=== PATIENT | male | born 1945 | race Caucasian/White ===

== ENCOUNTER 2018-06-02 06:55 | Day surgery (SDC) | payer MEDICARE, BC ==
[2018-05-31 12:21] LABS: BASOPHILS % (AUTO) 0.6 % (0-1); EOSINOPHILS # (AUTO) 0.1 X10'3 (0-0.9); EOSINOPHILS % (AUTO) 1.8 % (0-6); LYMPHOCYTES # (AUTO) 1.1 X10'3 (1.1-4.8); LYMPHOCYTES % (AUTO) 14.2 % (21-51); MEAN CORPUSCULAR HEMOGLOBIN 33.3 PG (27.0-31.0); MEAN CORPUSCULAR HGB CONC 34.2 % (33.0-36.5); MEAN CORPUSCULAR VOLUME 97.4 FL (78-98); MEAN PLATELET VOLUME 11.8 FL (7.4-10.4); MONOCYTES # (AUTO) 0.9 X10'3 (0-0.9); MONOCYTES % (AUTO) 11.5 % (2-12); NEUTROPHILS # (AUTO) 5.5 X10'3 (1.8-7.7); NEUTROPHILS % (AUTO) 71.9 % (42-75); PRE OP PLATELET COUNT 200 X10'3 (140-440); RED CELL DISTRIBUTION WIDTH 14.3 % (11.5-14.5)
[2018-05-31 12:30] LABS: ALBUMIN 3.5 G/DL (3.4-5.0); ALBUMIN/GLOBULIN RATIO 1.2 (1.1-1.5); ALKALINE PHOSPHATASE 63 IU/L (46-116); BLOOD UREA NITROGEN 35 MG/DL (7-18); BUN/CREATININE RATIO 19.2 (5.4-32.0); CALCIUM 9.5 MG/DL (8.5-10.1); CHLORIDE 106 MMOL/L (99-107); CREATININE 1.82 MG/DL (0.60-1.10); PRE OP ALT 12 U/L (30-65); PRE OP ANION GAP 6 (8-16); PRE OP AST 13 U/L (10-37); PRE OP BILIRUB, TOTAL 0.9 MG/DL (0.0-1.0); PRE OP GLUCOSE 87 MG/DL (70-104); PRE OP POTASSIUM 4.5 MMOL/L (3.4-5.1); PRE OP SODIUM 140 MMOL/L (135-145); TOTAL PROTEIN 6.5 G/DL (6.4-8.2); eGFR 37 ML/MIN
[2018-05-31 12:43] LABS: CLARITY,URINE CLEAR (Clear); COLOR,URINE YELLOW (Yellow); GLUCOSE, URINE NEGATIVE (Neg); KETONES,URINE NEGATIVE (Neg); LEUKOCYTE ESTERASE ,URINE NEGATIVE (Neg); NITRITES, URINE NEGATIVE (Neg); OCCULT BLOOD,URINE NEGATIVE (Neg); PH,URINE 5.5 (4.8-8.0); PROTEIN,URINE NEGATIVE (Neg); UA COLLECTION TYPE CLN CATCH MIDSTREAM; UROBILINOGEN,URINE 0.2 E.U/dL (0.2-1.0)
[2018-05-31 13:07] LABS: GIANT PLATELET FEW; LARGE PLATELETS FEW; PLATELET ESTIMATE NORMAL; POIKILOCYTOSIS 1+
[2018-05-31 13:08] LABS: ACANTHOCYTES 2+; MICROCYTOSIS 1+; SCHISTOCYTES 2+
[2018-06-02] VITALS (19 sets, daily range): BP systolic 98–120; BP diastolic 49–80
[~2018-06-02] VITALS: Ht 165.1 cm; Wt 62.3 kg
[~2018-06-02 06:55] MED LIST: CARV-50 PO; Cefazolin 2GM/50ML dext iso,osmotic IVPB IV ONE; DOCUMENT DATE & TIME OF BETA-BLOCKER PO ONE; ENOX40SY7 SUBCUT; FURO40TA4 PO; PANT40TA4 PO; POTA10TA15 PO; SACU1TAB7 PO; WARF2.5T82 PO; ZAR2.5T PO; famotidine 20mg tablet PO ONE; ringers solution, lacted 1,000 ML IV SCH
[2018-06-02 07:41] LABS: PRE OP INR 1.3 INR; PRE OP PROTIME 13.3 SECONDS (9.0-12.0)
[2018-06-02] MEDS ORDERED: ceFAZolin 1000mg inj ONE ×2 (08:12→10:18)
[2018-06-02] MEDS ORDERED: BUPIVAcaine/PF 2.5mg/ml (0.25%) 10ml vial ONE ×2 (08:12→10:19)
[2018-06-02] MEDS ORDERED: ringers solution, lacted 1,000 ML IV SCH (08:41)
[2018-06-02] MEDS ORDERED: morphine 4 MG/ML inj SYRINge IV PRN (08:45)
[2018-06-02] MEDS ORDERED: ondansetron/PF 4mg/2ml inj IV PRN (08:45)
[2018-06-02] MEDS ORDERED: HYDROmorphone 1 mg/ml syringe IV PRN ×2 (08:45)
[2018-06-02] MEDS ORDERED: fentaNYL/PF 50MCG/1 ML 2ML syringe ONE ×2 (09:45→10:32)
[2018-06-02] MEDS ORDERED: propofol inj 20 ML IV ONE (09:47)
[2018-06-02] MEDS ORDERED: rocuronium 10mg/ml inj IV ONE (09:47)
[2018-06-02] MEDS ORDERED: LIDOcaine 2% (20mg/ml) 5ml vial ONE (09:47)
[2018-06-02] MEDS ORDERED: ePHEDrine 50MG/ML INJ. ONE (10:02)
[2018-06-02] MEDS ORDERED: dexamethasone sod phosphate 4mg/ml inj. ONE (10:04)
[2018-06-02] MEDS ORDERED: glycopyrrolate 0.2mg/ml inj ONE (10:13)
[2018-06-02] MEDS ORDERED: ondansetron/PF 4mg/2ml inj ONE (10:13)
[2018-06-02] MEDS ORDERED: neostigmine methylsulfate 1 MG/ML 10ml vial ONE (10:13)
== END 2018-06-02 14:30 | disposition home or self-care (01) ==
LOC: PAS 06:55
PROVIDERS: ATTEND Surgery
DX: K40.90 Unilateral inguinal hernia, without obstruction or gangrene, not specified as recurrent (principal); I25.10 Atherosclerotic heart disease of native coronary artery without angina pectoris; F43.21 Adjustment disorder with depressed mood; I50.40 Unspecified combined systolic (congestive) and diastolic (congestive) heart failure; E55.9 Vitamin D deficiency, unspecified; E03.9 Hypothyroidism, unspecified; G47.33 Obstructive sleep apnea (adult) (pediatric); I48.91 Unspecified atrial fibrillation; N18.4 Chronic kidney disease, stage 4 (severe); N40.0 Benign prostatic hyperplasia without lower urinary tract symptoms; M19.90 Unspecified osteoarthritis, unspecified site; J44.9 Chronic obstructive pulmonary disease, unspecified; Z86.14 Personal history of Methicillin resistant Staphylococcus aureus infection; Z95.5 Presence of coronary angioplasty implant and graft; Z90.49 Acquired absence of other specified parts of digestive tract; Z95.2 Presence of prosthetic heart valve; Z90.81 Acquired absence of spleen; Z88.5 Allergy status to narcotic agent; Z95.810 Presence of automatic (implantable) cardiac defibrillator; Z98.41 Cataract extraction status, right eye; Z98.42 Cataract extraction status, left eye; Z79.01 Long term (current) use of anticoagulants; Z79.899 Other long term (current) drug therapy; Z98.890 Other specified postprocedural states; Z82.3 Family history of stroke
CPT/HCPCS: 36415; 49650; 71046; 80053; 81003; 85025; 85610; 85730; A4315; A6258; C1781; J0690; J1100; J2001; J2405; J2704; J2710; J3010; J3490; J7120

== ENCOUNTER 2018-12-03 09:05 | Inpatient (IN) | payer MEDICARE, BC ==
[~2018-12-03] VITALS: Ht 162.6 cm; Wt 68.6 kg
[~2018-12-03 09:05] MED LIST changes: -Cefazolin 2GM/50ML dext iso,osmotic IVPB IV ONE; -DOCUMENT DATE & TIME OF BETA-BLOCKER PO ONE; -famotidine 20mg tablet PO ONE; -ringers solution, lacted 1,000 ML IV SCH
[2018-12-03] MEDS ORDERED: COU2.5T PO (11:09)
[2018-12-03] MEDS ORDERED: SYN0.088T PO (11:09)
[2018-12-03] MEDS ORDERED: LACT1CAP65 PO (11:09)
[2018-12-03] MEDS ORDERED: FURO-149 PO (11:09)
[2018-12-03] MEDS ORDERED: tamsulosin PO (11:09)
[2018-12-03] MEDS ORDERED: SACU1TAB PO (11:09)
[2018-12-03] MEDS ORDERED: imodium PO (11:09)
[2018-12-03] MEDS ORDERED: METO-292 PO (11:09)
[2018-12-03 11:45] LABS: BASOPHILS # (AUTO) 0.1 X10'3 (0-0.2); HEMOGLOBIN 11.5 g/dl (14.0-17.9); LYMPHOCYTES # (AUTO) 0.6 X10'3 (1.1-4.8); NEUTROPHILS # (AUTO) 4.6 X10'3 (1.8-7.7); WHITE BLOOD COUNT 6.5 X10'3 (4.5-11.0)
--- NOTE | 2018-12-03 11:46 | NUR ---
chief technician at bedside.
[2018-12-03 11:47] LABS: BASOPHILS % (AUTO) 1.5 % (0-1); EOSINOPHILS # (AUTO) 0.3 X10'3 (0-0.9); EOSINOPHILS % (AUTO) 5.3 % (0-6); HEMATOCRIT 33.8 % (42.0-52.0); MEAN CORPUSCULAR HEMOGLOBIN 33.5 PG (27.0-31.0); MEAN CORPUSCULAR HGB CONC 33.9 g/dL (33.0-36.5); MEAN CORPUSCULAR VOLUME 98.8 FL (78-98); MEAN PLATELET VOLUME 10.9 FL (7.4-10.4); MONOCYTES # (AUTO) 0.7 X10'3 (0-0.9); MONOCYTES % (AUTO) 11.2 % (2-12); PLATELET COUNT 210 X10'3 (140-440); RED BLOOD COUNT 3.42 X10'6 (4.70-6.10); RED CELL DISTRIBUTION WIDTH 15.2 % (11.5-14.5)
[2018-12-03 11:48] LABS: ALANINE AMINOTRANSFERASE 13 U/L (12-78); ALBUMIN 3.1 G/DL (3.4-5.0); ALBUMIN/GLOBULIN RATIO 1.1 (1.1-1.5); ALKALINE PHOSPHATASE 88 IU/L (46-116); ANION GAP 10 (8-16); ASPARTATE AMINO TRANSFERASE 20 U/L (10-37); BILIRUBIN,TOTAL 1.1 MG/DL (0.1-1.0); BLOOD UREA NITROGEN 80 MG/DL (7-18); BUN/CREATININE RATIO 33.8 (5.4-32.0); CALCIUM 9.2 MG/DL (8.5-10.1); CHLORIDE 109 MMOL/L (99-107); CREATININE 2.37 MG/DL (0.60-1.10); GLUCOSE 81 MG/DL (70-104); POTASSIUM 4.7 MMOL/L (3.5-5.1); SODIUM 142 MMOL/L (135-145); TOTAL CARBON DIOXIDE 22.8 MMOL/L (24-32); eGFR 27 ML/MIN
[2018-12-03 12:02] LABS: ACANTHOCYTES 2+; PLATELET ESTIMATE NORMAL; SCHISTOCYTES 1+
[2018-12-03] MEDS ORDERED: magnesium Cl slow-release 64mg tablet PO PRN (12:55)
[2018-12-03] MEDS ORDERED: magnesium 4gm in 100ml NS 100 ML IV PRN (12:55)
[2018-12-03] MEDS ORDERED: HYDROcodone/acetaminophen 5mg/325mg tablet PO PRN (12:55)
[2018-12-03] MEDS ORDERED: potassium Cl 20 mEq SR tablet PO PRN ×2 (12:55)
[2018-12-03] MEDS ORDERED: magnesium 2GM in 50ml NS 50 ML IV PRN (12:55)
[2018-12-03] MEDS ORDERED: potassium Cl 40MEQ/NS 500ml 500 ML IV PRN ×2 (12:55)
[2018-12-03] MEDS ORDERED: ondansetron/PF 4mg/2ml inj IV PRN (12:55)
[2018-12-03] MEDS ORDERED: acetaminophen 325mg tablet PO PRN ×2 (12:55)
[2018-12-03] MEDS ORDERED: morphine 4 MG/ML inj SYRINge IV PRN (12:55)
[2018-12-03] MEDS ORDERED: LOPE2CAP PO (13:00)
[2018-12-03] MEDS ORDERED: FLO0.4C PO (13:00)
[2018-12-03 13:42] LABS: INR 3.5 INR; PARTIAL THROMBOPLASTIN TIME 44 SECONDS (22-32); PROTHROMBIN TIME 33.3 SECONDS (9.0-12.0)
--- NOTE | 2018-12-03 14:14 | NUR ---
bp 97/63mmhg,hr 70 patient asymptomatic,paged Dr. olivares.
--- NOTE | 2018-12-03 14:16 | NUR ---
spoke to Dr. olivares,aware about patient being hypotensive,no new order at this time.
--- NOTE | 2018-12-03 14:21 | NUR ---
awaiting room assignment.
[2018-12-03] MEDS ORDERED: heparin, porcine 5000 units/ml vial SQ SCH (16:00)
--- NOTE | 2018-12-03 16:03 | NUR ---
called [facility] spoke to zakiya,nurse not avialable to receive report.ED CN aware.
--- NOTE | 2018-12-03 16:24 | NUR ---
Patient in room ED 11. I have received report from CANDIDO Oneal and had the opportunity to ask questions and assume patient care.
[2018-12-03 16:30] VITALS: BP 92/59
--- NOTE | 2018-12-03 16:45 | NUR ---
Received patient from ER. Patient is alert and oriented. Family at the bedside.
--- NOTE | 2018-12-03 18:05 | NUR ---
Problems reprioritized. Patient report given, questions answered & plan of care reviewed with CANDIDO Engel.
--- NOTE | 2018-12-03 18:21 | NUR ---
Patient in room PCU 3027. I have received report from osiris chavez and had the opportunity to ask questions and assume patient care. 2 rn skin check done and no skin issues observed. patient in no distress. bed alarm on
[2018-12-03 19:00] VITALS: BP 95/58
--- NOTE | 2018-12-03 19:07 | NUR ---
PAGER ID: [phone] MESSAGE: pcu [phone]; ilda tomas did you want to hold the heparin tonight? thanks dell olivares ordered to d/c heparin sq, to change lasix 60mg bid to 40mg bid and to ensure pt/inr is drawn in am
[2018-12-03] MEDS: carVEDilol 3.125mg tablet PO SCH (20:00)
[2018-12-03] MEDS ORDERED: furosemide 10 MG/1 ML 10ml inj IV SCH (20:00)
[2018-12-03] MEDS: furosemide 40mg/4ml inj IV SCH (20:00)
--- NOTE | 2018-12-03 20:00 | NUR ---
dr martinez notified about 7 beat run v-tach and ordered mag level
[2018-12-03 20:48] VITALS: BP 87/53
[2018-12-03] MEDS: docusate sod 100mg capsule PO SCH (20:49)
[2018-12-03] MEDS: metoclopramide 10mg tablet PO SCH (20:49)
[2018-12-03] MEDS ORDERED: tamsulosin 0.4mg capsule PO SCH (21:00)
[2018-12-03 23:00] VITALS: BP 90/52
[2018-12-04 03:00] VITALS: BP 92/72
[2018-12-04 05:14] LABS: BASOPHILS # (AUTO) 0.1 X10'3 (0-0.2); BASOPHILS % (AUTO) 1.2 % (0-1); EOSINOPHILS # (AUTO) 0.4 X10'3 (0-0.9); HEMOGLOBIN 10.6 g/dl (14.0-17.9); MEAN PLATELET VOLUME 10.3 FL (7.4-10.4); MONOCYTES # (AUTO) 0.8 X10'3 (0-0.9); NEUTROPHILS # (AUTO) 4.5 X10'3 (1.8-7.7); WHITE BLOOD COUNT 6.4 X10'3 (4.5-11.0)
[2018-12-04 05:17] LABS: EOSINOPHILS % (AUTO) 6.4 % (0-6); INR 3.7 INR; LYMPHOCYTES # (AUTO) 0.5 X10'3 (1.1-4.8); LYMPHOCYTES % (AUTO) 8.6 % (21-51); MEAN CORPUSCULAR HEMOGLOBIN 33.3 PG (27.0-31.0); MEAN CORPUSCULAR HGB CONC 34.2 g/dL (33.0-36.5); MEAN CORPUSCULAR VOLUME 97.3 FL (78-98); MONOCYTES % (AUTO) 12.9 % (2-12); NEUTROPHILS % (AUTO) 70.9 % (42-75); PLATELET COUNT 197 X10'3 (140-440); PROTHROMBIN TIME 34.8 SECONDS (9.0-12.0); RED BLOOD COUNT 3.19 X10'6 (4.70-6.10); RED CELL DISTRIBUTION WIDTH 15.1 % (11.5-14.5)
[2018-12-04 05:22] LABS: ALANINE AMINOTRANSFERASE 15 U/L (12-78); ALBUMIN 2.9 G/DL (3.4-5.0); ALBUMIN/GLOBULIN RATIO 1.1 (1.1-1.5); ALKALINE PHOSPHATASE 81 IU/L (46-116); ANION GAP 10 (8-16); ASPARTATE AMINO TRANSFERASE 14 U/L (10-37); BILIRUBIN,TOTAL 1.1 MG/DL (0.1-1.0); BLOOD UREA NITROGEN 82 MG/DL (7-18); BUN/CREATININE RATIO 35.8 (5.4-32.0); CALCIUM 9.5 MG/DL (8.5-10.1); CHLORIDE 105 MMOL/L (99-107); CREATININE 2.29 MG/DL (0.60-1.10); GLUCOSE 86 MG/DL (70-104); MAGNESIUM 2.1 MG/DL (1.5-2.4); POTASSIUM 4.4 MMOL/L (3.5-5.1); SODIUM 137 MMOL/L (135-145); TOTAL CARBON DIOXIDE 22.2 MMOL/L (24-32); TOTAL PROTEIN 5.5 G/DL (6.4-8.2); eGFR 28 ML/MIN
[2018-12-04 06:00] VITALS: BP 110/70
--- NOTE | 2018-12-04 06:10 | NUR ---
Patient in room PCU 3027. I have received report from CANDIDO Engel and had the opportunity to ask questions and assume patient care.
--- NOTE | 2018-12-04 06:32 | NUR ---
Problems reprioritized. Patient report given, questions answered & plan of care reviewed with ONCOMING DAY SHIFT NURSE. PATIENT ASLEEP IN NO DISTRESS. CPAP ON
[2018-12-04] MEDS: furosemide 40mg/4ml inj IV SCH (07:31)
[2018-12-04] MEDS: metoclopramide 10mg tablet PO SCH (07:31)
[2018-12-04] MEDS: docusate sod 100mg capsule PO SCH (07:32)
[2018-12-04] MEDS: carVEDilol 3.125mg tablet PO SCH (07:32)
[2018-12-04 07:59] LABS: PLATELET ESTIMATE NORMAL
[2018-12-04 08:00] LABS: ACANTHOCYTES 2+; ANISOCYTOSIS 1+; SCHISTOCYTES 1+
[2018-12-04] MEDS ORDERED: levoTHYROXINE 25mcg tablet PO SCH (08:00)
[2018-12-04] MEDS ORDERED: K and/or MAG REPLACEMENT MC SCH (08:00)
[2018-12-04 12:06] VITALS: BP 90/61
--- NOTE | 2018-12-04 15:40 | NUR ---
DC inst provided to pt & pt's daughter. IV DC'd, tip intact. All belongings sent w/pt. WC to front lobby.
== END 2018-12-04 15:40 | disposition home or self-care (01) | DRG 292 ==
LOC: ER 09:06 → ED HOLD 12:53 → PCU 3S 16:30
PROVIDERS: ADMIT Internal Medicine; ATTEND Hospitalist
PROC: 5A09357 Assistance with Respiratory Ventilation, Less than 24 Consecutive Hours, Continuous Positive Airway Pressure (ICD-10-PCS; principal; 2018-12-03)
PROC: 5A09357 Assistance with Respiratory Ventilation, Less than 24 Consecutive Hours, Continuous Positive Airway Pressure (ICD-10-PCS; 2018-12-04)
DX: I50.23 Acute on chronic systolic (congestive) heart failure (principal); R18.8 Other ascites; I38 Endocarditis, valve unspecified; E11.22 Type 2 diabetes mellitus with diabetic chronic kidney disease; I25.10 Atherosclerotic heart disease of native coronary artery without angina pectoris; I48.91 Unspecified atrial fibrillation; K74.60 Unspecified cirrhosis of liver; N18.3 Chronic kidney disease, stage 3 (moderate); R79.1 Abnormal coagulation profile; Z66 Do not resuscitate; Z79.01 Long term (current) use of anticoagulants; Z90.81 Acquired absence of spleen; Z95.0 Presence of cardiac pacemaker; Z95.1 Presence of aortocoronary bypass graft; Z95.3 Presence of xenogenic heart valve; Z88.8 Allergy status to other drugs, medicaments and biological substances; Z90.49 Acquired absence of other specified parts of digestive tract
CPT/HCPCS: 36415; 71045; 80053; 83735; 83880; 84145; 85025; 85610; 85730; 87070; 93005; 93306; 99285; G0378; J1940; J8597

== ENCOUNTER 2019-01-31 07:18 | Day surgery (SDC) | payer MEDICARE, BC ==
[~2019-01-31] VITALS: Ht 165.1 cm; Wt 75.0 kg
[2019-01-31] VITALS (11 sets, daily range): BP systolic 80–98; BP diastolic 50–68
[~2019-01-31 07:18] MED LIST changes: +COU2.5T PO; -ENOX40SY7 SUBCUT; +FLO0.4C PO; +FURO-149 PO; -FURO40TA4 PO; +LACT1CAP65 PO; +LIDOcaine 1% 30ml preserv. free vial SQ STA; +LOPE2CAP PO; +METO-292 PO; -PANT40TA4 PO; +SACU1TAB PO; -SACU1TAB7 PO; +SYN0.088T PO
[2019-01-31] MEDS ORDERED: normal saline 1000ml 1,000 ML IV PRN (07:45)
[2019-01-31] MEDS ORDERED: albumin 25% 100mL bottle x 1 IV PRN (07:45)
[2019-01-31] MEDS ORDERED: LEVO50TA8 PO (07:59)
[2019-01-31] MEDS ORDERED: CHOL4PAC19 PO (07:59)
[2019-01-31 08:17] LABS: INR 1.5 INR
== END 2019-01-31 10:40 | disposition home or self-care (01) ==
LOC: SSTAY O 07:18
PROVIDERS: ATTEND Radiology Vascular & Interventional Radiology
DX: R18.8 Other ascites (principal); I42.0 Dilated cardiomyopathy; I25.10 Atherosclerotic heart disease of native coronary artery without angina pectoris; I50.9 Heart failure, unspecified; K76.9 Liver disease, unspecified; Z95.2 Presence of prosthetic heart valve; Z79.899 Other long term (current) drug therapy; Z79.01 Long term (current) use of anticoagulants; Z88.8 Allergy status to other drugs, medicaments and biological substances
CPT/HCPCS: 36415; 49083; 85610; C1729; J3490; J7030

== ENCOUNTER 2019-04-14 10:19 | Inpatient (IN) | payer MEDICARE, BC ==
[~2019-04-14] VITALS: Ht 162.6 cm; Wt 66.0 kg
[~2019-04-14 10:19] MED LIST changes: -CARV-50 PO; +CARV25TA3 PO; +CHOL4PAC19 PO; +LEVO50TA8 PO; -LIDOcaine 1% 30ml preserv. free vial SQ STA; -SYN0.088T PO; -WARF2.5T82 PO; -ZAR2.5T PO
[2019-04-14 11:04] LABS: BASOPHILS # (AUTO) 0.1 X10'3 (0-0.2); EOSINOPHILS # (AUTO) 0.1 X10'3 (0-0.9); MONOCYTES # (AUTO) 0.6 X10'3 (0-0.9)
[2019-04-14 11:06] LABS: BASOPHILS % (AUTO) 1.3 % (0-1); EOSINOPHILS % (AUTO) 1.8 % (0-6); HEMATOCRIT 28.9 % (42.0-52.0); LYMPHOCYTES # (AUTO) 0.5 X10'3 (1.1-4.8); LYMPHOCYTES % (AUTO) 8.4 % (21-51); MEAN CORPUSCULAR HEMOGLOBIN 33.4 PG (27.0-31.0); MEAN CORPUSCULAR HGB CONC 34.6 g/dL (33.0-36.5); MEAN CORPUSCULAR VOLUME 96.4 FL (78-98); MEAN PLATELET VOLUME 10.5 FL (7.4-10.4); MONOCYTES % (AUTO) 9.8 % (2-12); NEUTROPHILS # (AUTO) 4.9 X10'3 (1.8-7.7); NEUTROPHILS % (AUTO) 78.7 % (42-75); PLATELET COUNT 163 X10'3 (140-440); RED CELL DISTRIBUTION WIDTH 13.8 % (11.5-14.5); WHITE BLOOD COUNT 6.2 X10'3 (4.5-11.0)
[2019-04-14 11:07] LABS: CLARITY,URINE CLEAR (Clear); COLOR,URINE YELLOW (Yellow); GLUCOSE, URINE NEGATIVE (Neg); KETONES,URINE NEGATIVE (Neg); LEUKOCYTE ESTERASE ,URINE NEGATIVE (Neg); NITRITES, URINE NEGATIVE (Neg); OCCULT BLOOD,URINE NEGATIVE (Neg); PROTEIN,URINE TRACE mg/dl (Neg); UROBILINOGEN,URINE 0.2 E.U/dL (0.2-1.0)
[2019-04-14 11:12] LABS: UA COLLECTION TYPE CLN CATCH MIDSTREAM
[2019-04-14 11:18] LABS: BACTERIA,URINE NONE SEEN /HPF (Neg); RBC,URINE 0-2 /HPF (0-2); SQUAMOUS EPITHELIAL CELL,UR FEW /LPF (FEW); WBC,URINE 0-4 /HPF (0-4)
[2019-04-14 11:18] LABS: ALANINE AMINOTRANSFERASE 14 U/L (12-78); ALBUMIN 3.2 G/DL (3.4-5.0); ALBUMIN/GLOBULIN RATIO 1.1 (1.1-1.5); ALKALINE PHOSPHATASE 91 IU/L (46-116); ANION GAP 12 (8-16); ASPARTATE AMINO TRANSFERASE 15 U/L (10-37); BILIRUBIN,TOTAL 1.3 MG/DL (0.1-1.0); BLOOD UREA NITROGEN 130 MG/DL (7-18); BUN/CREATININE RATIO 42.8 (5.4-32.0); CALCIUM 9.7 MG/DL (8.5-10.1); CHLORIDE 90 MMOL/L (99-107); CREATININE 3.04 MG/DL (0.60-1.10); GLUCOSE 98 MG/DL (70-104); LIPASE 182 U/L (73-393); SODIUM 134 MMOL/L (135-145); TOTAL CARBON DIOXIDE 32.1 MMOL/L (24-32); TOTAL PROTEIN 6.1 G/DL (6.4-8.2); eGFR 20 ML/MIN
[2019-04-14 11:19] LABS: POTASSIUM 2.5 MMOL/L (3.5-5.1)
[2019-04-14 11:26] LABS: PLATELET ESTIMATE NORMAL
[2019-04-14 11:27] LABS: ACANTHOCYTES 2+; LARGE PLATELETS FEW; SCHISTOCYTES 1+
[2019-04-14 11:29] LABS: MUCUS STRANDS FEW /LPF (Neg)
[2019-04-14 11:30] LABS: TRANSITIONAL EPI CELLS,URINE FEW /HPF
[2019-04-14] MEDS ORDERED: potassium Cl 40 mEq/NS 500ml IV ONE (12:20)
[2019-04-14] MEDS ORDERED: morphine 4 MG/ML inj SYRINge IV ONE (12:20)
[2019-04-14] MEDS: potassium CL 10mEq/100ml bag 100 ML IV SCH ×4 (13:19→16:50)
[2019-04-14] MEDS ORDERED: ondansetron/PF 4mg/2ml inj IV ONE (13:30)
[2019-04-14 13:48] LABS: TROPONIN I 0.08 NG/ML (0.0-0.05)
[2019-04-14] MEDS ORDERED: normal saline 1000ml 1,000 ML IV SCH (14:33)
[2019-04-14] MEDS ORDERED: mag hydrox/Alum hydrox/simeth 30ml oral suspension PO PRN (14:35)
[2019-04-14] MEDS ORDERED: potassium Cl 20 mEq SR tablet PO PRN ×3 (14:35→23:00)
[2019-04-14] MEDS ORDERED: ondansetron/PF 4mg/2ml inj IV PRN (14:35)
[2019-04-14] MEDS ORDERED: acetaminophen 325mg tablet PO PRN ×2 (14:35)
[2019-04-14] MEDS ORDERED: magnesium Cl slow-release 64mg tablet PO PRN (14:35)
[2019-04-14] MEDS ORDERED: potassium CL 10mEq/100ml bag 100 ML IV PRN ×3 (14:35→23:00)
[2019-04-14] MEDS ORDERED: magnesium hydroxide 30ml (MOM) UD suspension PO PRN (14:35)
[2019-04-14] MEDS ORDERED: magnesium 4gm in 100ml NS 100 ML IV PRN (14:35)
[2019-04-14] MEDS ORDERED: magnesium 2GM in 50ml NS 50 ML IV PRN ×2 (14:35→23:00)
[2019-04-14] MEDS ORDERED: HYDR-4069 PO (14:37)
[2019-04-14] MEDS ORDERED: ISOS30TA6 PO (14:38)
--- NOTE | 2019-04-14 14:41 | NUR ---
pt refusing zofran at this time.
[2019-04-14] MEDS ORDERED: METO5TAB7 PO (14:45)
[2019-04-14] MEDS ORDERED: SERT50TA10 PO (14:46)
--- NOTE | 2019-04-14 14:51 | NUR ---
pt reports freq. low BPs at home. BP 88/58, MD aware.
[2019-04-14 15:00] VITALS: BP 88/60
--- NOTE | 2019-04-14 15:52 | NUR ---
Patient arrived to [facility] 3024A at 1552. Vital signs: BP: 88/60, HR: 61, RR: 18 O2: 96% RA. Patient oriented to room and to call light. No complaints at this time. Will continue to monitor.
[2019-04-14] MEDS ORDERED: WARF2.5T PO (17:02)
--- NOTE | 2019-04-14 17:24 | NUR ---
88/60 61 18 96% RA, Patient has been admitted to 3024A from ED, reoriented to unit, call light w/in reach, all needs met at this time. will continue to monitor.
[2019-04-14 18:00] VITALS: BP 88/64
--- NOTE | 2019-04-14 18:58 | NUR ---
Orientee documentation: I have reviewed and agree with all interventions, assessments performed and documented by CANDIDO Brito. Orientee Medication Administration: For this medication-pass time frame, all medication were reviewed, dispensed, administered and documented per hospital policy by CANDIDO Brito.
--- NOTE | 2019-04-14 19:04 | NUR ---
Patient in room PCU 3024. I have received report from Tete REY and had the opportunity to ask questions and assume patient care.
[2019-04-14 19:33] LABS: CLARITY,URINE CLEAR (Clear); COLOR,URINE YELLOW (Yellow); GLUCOSE, URINE NEGATIVE (Neg); KETONES,URINE NEGATIVE (Neg); LEUKOCYTE ESTERASE ,URINE NEGATIVE (Neg); NITRITES, URINE NEGATIVE (Neg); OCCULT BLOOD,URINE NEGATIVE (Neg); PROTEIN,URINE 30 mg/dl (Neg); UROBILINOGEN,URINE 0.2 E.U/dL (0.2-1.0)
[2019-04-14 19:34] LABS: UA COLLECTION TYPE NON-SPECIFIED
[2019-04-14] MEDS ORDERED: hyDRALAzine 10mg tablet PO PRN (19:35)
[2019-04-14] MEDS ORDERED: [UNRECOGNIZED DRUG - OTHER] PO PRN (19:35)
[2019-04-14] MEDS ORDERED: lactulose 20gm/30ml cup PO PRN (19:35)
[2019-04-14] MEDS ORDERED: CHOLESTYRAMINE PO PRN (19:35)
[2019-04-14] MEDS ORDERED: chloestyramine/aspartame 4gm packet PO PRN (19:40)
[2019-04-14 19:42] LABS: BACTERIA,URINE NONE SEEN /HPF (Neg); MUCUS STRANDS NONE SEEN /LPF (Neg); RBC,URINE 0-2 /HPF (0-2); SQUAMOUS EPITHELIAL CELL,UR FEW /LPF (FEW); WBC,URINE 0-4 /HPF (0-4)
[2019-04-14 19:43] LABS: AMORPHOUS URATES 1+; HYALINE CASTS 0-3 /LPF (NEGATIVE)
[2019-04-14 20:08] LABS: UA EOSINOPHILS NO EOS /HPF
[2019-04-14] MEDS: tamsulosin 0.4mg capsule PO SCH (20:45)
[2019-04-14] MEDS: potassium CL 10mEq/100ml bag 100 ML IV PRN ×2 (20:46→23:22)
[2019-04-14 23:00] VITALS: BP 90/64
[2019-04-15] MEDS: potassium CL 10mEq/100ml bag 100 ML IV PRN ×2 (02:08→03:25)
[2019-04-15 03:00] VITALS: BP 92/66
[2019-04-15 06:00] VITALS: BP 133/81
[2019-04-15 06:05] LABS: HEMATOCRIT 28.5 % (42.0-52.0); HEMOGLOBIN 9.8 g/dl (14.0-17.9); MONOCYTES # (AUTO) 0.6 X10'3 (0-0.9)
[2019-04-15 06:08] LABS: BASOPHILS % (AUTO) 0.7 % (0-1); EOSINOPHILS # (AUTO) 0.2 X10'3 (0-0.9); EOSINOPHILS % (AUTO) 2.6 % (0-6); LYMPHOCYTES # (AUTO) 0.4 X10'3 (1.1-4.8); LYMPHOCYTES % (AUTO) 6.4 % (21-51); MEAN CORPUSCULAR HEMOGLOBIN 33.5 PG (27.0-31.0); MEAN CORPUSCULAR HGB CONC 34.5 g/dL (33.0-36.5); MEAN CORPUSCULAR VOLUME 97.1 FL (78-98); MEAN PLATELET VOLUME 11.6 FL (7.4-10.4); MONOCYTES % (AUTO) 10.5 % (2-12); NEUTROPHILS # (AUTO) 4.8 X10'3 (1.8-7.7); NEUTROPHILS % (AUTO) 79.8 % (42-75); PLATELET COUNT 157 X10'3 (140-440); RED BLOOD COUNT 2.93 X10'6 (4.70-6.10); RED CELL DISTRIBUTION WIDTH 14.4 % (11.5-14.5)
--- NOTE | 2019-04-15 06:15 | NUR ---
Patient in room PCU 3024. I have received report from CANDIDO Vásquez and had the opportunity to ask questions and assume patient care. Patient is currently sleeping in bed, CPAP in place, bed locked and low, call light in reach. No acute distress, will continue to monitor
[2019-04-15 06:30] LABS: ALBUMIN 2.8 G/DL (3.4-5.0); ANION GAP 10 (8-16); BLOOD UREA NITROGEN 127 MG/DL (7-18); BUN/CREATININE RATIO 43.8 (5.4-32.0); CALCIUM 8.2 MG/DL (8.5-10.1); CHLORIDE 93 MMOL/L (99-107); GLUCOSE 95 MG/DL (70-104); MAGNESIUM 2.1 MG/DL (1.5-2.4); POTASSIUM 3.1 MMOL/L (3.5-5.1); SODIUM 134 MMOL/L (135-145); eGFR 21 ML/MIN
--- NOTE | 2019-04-15 06:37 | NUR ---
Problems reprioritized. Patient report given, questions answered & plan of care reviewed with Ninfa REY.
[2019-04-15 06:49] LABS: ACANTHOCYTES 2+; ANISOCYTOSIS 1+; PLATELET ESTIMATE NORMAL; POLYCHROMASIA FEW
[2019-04-15 06:50] LABS: SCHISTOCYTES FEW
[2019-04-15] MEDS: sertraline 50mg tablet PO SCH (07:51)
[2019-04-15] MEDS: lactobacillus rhamnosus 10,000 MMU CELLS/CAPSULE PO SCH (07:51)
[2019-04-15] MEDS: levoTHYROXINE 25mcg tablet PO SCH (07:51)
[2019-04-15] MEDS: tamsulosin 0.4mg capsule PO SCH ×2 (07:51→20:16)
[2019-04-15] MEDS: potassium Cl 20 mEq SR tablet PO PRN ×3 (07:56→20:17)
[2019-04-15] MEDS ORDERED: non-formulary drug (Levothyroxine Sodium 1 TAB) PO SCH (08:00)
[2019-04-15] MEDS: K and/or MAG REPLACEMENT MC SCH (08:00)
[2019-04-15] MEDS ORDERED: non-formulary drug (Lactobacillus Acidophilus (Probiotic) 1 EACH) PO SCH (08:00)
--- NOTE | 2019-04-15 10:15 | NUR ---
PAGER ID: [phone] MESSAGE: CANDIDO Winters, ext [phone], [id number], LOKI Jansen nurse informed me you wanted patient on SPO2 and to put in an order, need parameters, patient's SPO2 is 95% on RA and patient does not understand reason for O2.
[2019-04-15 11:00] VITALS: BP 93/65
--- NOTE | 2019-04-15 11:21 | NUR ---
PAGER ID: [phone] MESSAGE: CANDIDO Winters, ext [phone], [id number], Justyna, requesting order for PT eval/treat, thank you.
--- NOTE | 2019-04-15 12:54 | NUR ---
PAGER ID: [phone] MESSAGE: [id number] Joe Jansen. unable to obtain Temp; rectal temp 94.2. please advise. Luis Manuel REY ext [phone]
[2019-04-15 15:00] VITALS: BP 92/66
--- NOTE | 2019-04-15 16:34 | NUR ---
PAGER ID: [phone] MESSAGE: CANDIDO Winters, ext [phone], [id number], Justyna. FYI, patient oral temp now 97.6 after 3.5 hours with penny hugger applied. Family wondering about thyroid function, can we get a TSH? Thank you. Spoke with Dr. Fernandes, she okay'd getting the TSH and said to discontinue the penny hugger at this time.
[2019-04-15 18:00] VITALS: BP 91/65
--- NOTE | 2019-04-15 18:11 | NUR ---
Problems reprioritized. Patient report given, questions answered & plan of care reviewed with Thalia. patient is currently sitting in chair in room with family at bedside, bed locked and low, call light in reach, patient stable at shift change.
--- NOTE | 2019-04-15 18:48 | NUR ---
Orientee documentation: I have reviewed and agree with interventions, assessments performed and documented by Vianey REY.
--- NOTE | 2019-04-15 18:50 | NUR ---
Patient in room PCU 3024. I have received report from Vianey REY and had the opportunity to ask questions and assume patient care.
[2019-04-15 23:00] VITALS: BP 89/60
[2019-04-16] VITALS (16 sets, daily range): BP systolic 84–116; BP diastolic 55–78
--- NOTE | 2019-04-16 05:46 | NUR ---
PAGER ID: [phone] MESSAGE: pt Long[place] Joe [id number] c/o nausea, got Zofran but not very effective. Can he has other medication? Thanks, Thalia [phone]!
[2019-04-16] MEDS ORDERED: proCHLORperazine 10 MG/2 ml inj IV PRN (06:00)
--- NOTE | 2019-04-16 06:00 | NUR ---
Patient in room PCU 3024. I have received report from Thalia REY and had the opportunity to ask questions and assume patient care.
--- NOTE | 2019-04-16 06:00 | NUR ---
Patient in room PCU 3024. I have received report from Thalia REY and had the opportunity to ask questions and assume patient care.
--- NOTE | 2019-04-16 06:02 | NUR ---
Dr. Larry saucedo called and got order of 10mg companzine IV
[2019-04-16 06:13] LABS: ALBUMIN 2.9 G/DL (3.4-5.0); ANION GAP 8 (8-16); BLOOD UREA NITROGEN 130 MG/DL (7-18); BUN/CREATININE RATIO 42.3 (5.4-32.0); CALCIUM 9.2 MG/DL (8.5-10.1); CHLORIDE 94 MMOL/L (99-107); CREATININE 3.07 MG/DL (0.60-1.10); GLUCOSE 89 MG/DL (70-104); MAGNESIUM 2.4 MG/DL (1.5-2.4); POTASSIUM 3.6 MMOL/L (3.5-5.1); SODIUM 133 MMOL/L (135-145); TOTAL CARBON DIOXIDE 30.9 MMOL/L (24-32); eGFR 20 ML/MIN
--- NOTE | 2019-04-16 06:34 | NUR ---
PAGER ID: [phone] MESSAGE: pt Longuist Joe 302Irene has a critical value INR 4.3. Thanks Thalia [phone]!
--- NOTE | 2019-04-16 06:38 | NUR ---
Problems reprioritized. Patient report given, questions answered & plan of care reviewed with Deneen REY.
--- NOTE | 2019-04-16 06:55 | NUR ---
Received call back from Dr Nelson re: INR 4.3, no new orders for bleeding time. New order for fluid restriction 1500ml, add on Heart Healthy diet. Orders entered
[2019-04-16 07:35] LABS: BASOPHILS # (AUTO) 0.1 X10'3 (0-0.2); BASOPHILS % (AUTO) 0.8 % (0-1); HEMOGLOBIN 10.2 g/dl (14.0-17.9); LYMPHOCYTES # (AUTO) 0.3 X10'3 (1.1-4.8); MONOCYTES # (AUTO) 0.6 X10'3 (0-0.9); RED CELL DISTRIBUTION WIDTH 14.3 % (11.5-14.5)
[2019-04-16 07:37] LABS: EOSINOPHILS # (AUTO) 0.2 X10'3 (0-0.9); EOSINOPHILS % (AUTO) 2.7 % (0-6); HEMATOCRIT 29.6 % (42.0-52.0); LYMPHOCYTES % (AUTO) 4.4 % (21-51); MEAN CORPUSCULAR HEMOGLOBIN 33.6 PG (27.0-31.0); MEAN CORPUSCULAR HGB CONC 34.4 g/dL (33.0-36.5); MEAN CORPUSCULAR VOLUME 97.8 FL (78-98); MEAN PLATELET VOLUME 11.9 FL (7.4-10.4); MONOCYTES % (AUTO) 8.4 % (2-12); NEUTROPHILS # (AUTO) 6.2 X10'3 (1.8-7.7); NEUTROPHILS % (AUTO) 83.7 % (42-75); PLATELET COUNT 163 X10'3 (140-440); RED BLOOD COUNT 3.03 X10'6 (4.70-6.10); WHITE BLOOD COUNT 7.4 X10'3 (4.5-11.0)
[2019-04-16] MEDS: K and/or MAG REPLACEMENT MC SCH (08:00)
[2019-04-16] MEDS: sertraline 50mg tablet PO SCH (08:51)
[2019-04-16] MEDS: tamsulosin 0.4mg capsule PO SCH (08:51)
[2019-04-16] MEDS: lactobacillus rhamnosus 10,000 MMU CELLS/CAPSULE PO SCH (08:51)
[2019-04-16] MEDS: levoTHYROXINE 25mcg tablet PO SCH (08:52)
[2019-04-16 09:08] LABS: ANISOCYTOSIS 1+; PLATELET ESTIMATE NORMAL
[2019-04-16 09:09] LABS: ACANTHOCYTES 3+; SCHISTOCYTES FEW
[2019-04-16] MEDS ORDERED: docusate sod 100mg capsule PO ONE (12:20)
[2019-04-16] MEDS: Potassium Cl inj 20 MEQ in normal saline 1000ml 990 ML IV SCH (13:54)
[2019-04-16] MEDS: DOBUTamine-DoBUTrex 500mg/D5W 250 ML IV SCH (14:22)
[2019-04-16] MEDS ORDERED: phytonadione inj. 5 MG in normal saline 100ml IV soln 99.5 ML IV ONE (17:00)
--- NOTE | 2019-04-16 18:00 | NUR ---
Problems reprioritized. Patient report given, questions answered & plan of care reviewed with Forrest REY.
[2019-04-16 18:20] LABS: PARTIAL THROMBOPLASTIN TIME 50 SECONDS (22-32)
--- NOTE | 2019-04-16 18:24 | NUR ---
Page to Dr Fernandes re:Room 3023B Gaurav Jansen PT=41.2 INR=4.4 prior to receiving phytonadione, Deneen Clayton [phone] Addendum: 04/16/19 at 1841 by Deneen Burris RN Return call from Dr Fernandes, no new orders as she intended PT/INR to be done with morning labs as pt had not yet received phytonadione and there has been relatively no change from this morning's lab
--- NOTE | 2019-04-16 18:44 | NUR ---
Patient in room PCU 3024. I have received report from Deneen REY, and had the opportunity to ask questions and assume patient care.
[2019-04-16] MEDS: docusate sod 100mg capsule PO SCH (20:26)
[2019-04-17] VITALS (9 sets, daily range): BP systolic 82–98; BP diastolic 46–69
--- NOTE | 2019-04-17 06:00 | NUR ---
Patient in room PCU 3024. I have received report from Forrest REY and had the opportunity to ask questions and assume patient care.
[2019-04-17 06:29] LABS: EOSINOPHILS # (AUTO) 0.1 X10'3 (0-0.9); HEMOGLOBIN 10.2 g/dl (14.0-17.9); LYMPHOCYTES # (AUTO) 0.3 X10'3 (1.1-4.8); LYMPHOCYTES % (AUTO) 5.3 % (21-51); MEAN PLATELET VOLUME 11.7 FL (7.4-10.4); MONOCYTES # (AUTO) 0.8 X10'3 (0-0.9); WHITE BLOOD COUNT 6.3 X10'3 (4.5-11.0)
[2019-04-17 06:33] LABS: BASOPHILS % (AUTO) 0.6 % (0-1); HEMATOCRIT 29.5 % (42.0-52.0); MEAN CORPUSCULAR HEMOGLOBIN 33.7 PG (27.0-31.0); MEAN CORPUSCULAR HGB CONC 34.4 g/dL (33.0-36.5); MEAN CORPUSCULAR VOLUME 97.8 FL (78-98); MONOCYTES % (AUTO) 12.3 % (2-12); NEUTROPHILS # (AUTO) 5.1 X10'3 (1.8-7.7); NEUTROPHILS % (AUTO) 80.8 % (42-75); PLATELET COUNT 145 X10'3 (140-440); RED BLOOD COUNT 3.02 X10'6 (4.70-6.10); RED CELL DISTRIBUTION WIDTH 14.6 % (11.5-14.5)
[2019-04-17 06:39] LABS: ALBUMIN 2.8 G/DL (3.4-5.0); ANION GAP 11 (8-16); BLOOD UREA NITROGEN 133 MG/DL (7-18); BUN/CREATININE RATIO 42.6 (5.4-32.0); CALCIUM 9.1 MG/DL (8.5-10.1); CHLORIDE 94 MMOL/L (99-107); CREATININE 3.12 MG/DL (0.60-1.10); GLUCOSE 86 MG/DL (70-104); MAGNESIUM 2.3 MG/DL (1.5-2.4); SODIUM 133 MMOL/L (135-145); TOTAL CARBON DIOXIDE 28.4 MMOL/L (24-32); eGFR 20 ML/MIN
[2019-04-17 06:53] LABS: LARGE PLATELETS FEW; PLATELET ESTIMATE NORMAL
[2019-04-17 06:54] LABS: ACANTHOCYTES 3+; ANISOCYTOSIS 1+; SCHISTOCYTES 1+
[2019-04-17] MEDS: K and/or MAG REPLACEMENT MC SCH (08:00)
[2019-04-17] MEDS: tamsulosin 0.4mg capsule PO SCH (08:24)
[2019-04-17] MEDS: sertraline 25mg tablet PO SCH (08:24)
[2019-04-17] MEDS: levoTHYROXINE 25mcg tablet PO SCH (08:24)
[2019-04-17] MEDS: lactobacillus rhamnosus 10,000 MMU CELLS/CAPSULE PO SCH (08:25)
[2019-04-17] MEDS: docusate sod 100mg capsule PO SCH ×2 (08:28→19:47)
[2019-04-17] MEDS: Potassium Cl inj 20 MEQ in normal saline 1000ml 990 ML IV SCH (08:28)
[2019-04-17] MEDS: DOBUTamine-DoBUTrex 500mg/D5W 250 ML IV SCH (10:05)
--- NOTE | 2019-04-17 14:54 | NUR ---
Problems reprioritized. Patient report given, questions answered & plan of care reviewed with Uri REY.
[2019-04-17] MEDS: normal saline 1000ml 1,000 ML IV SCH (16:54)
--- NOTE | 2019-04-17 18:25 | NUR ---
Problems reprioritized. Patient report given, questions answered & plan of care reviewed with Laura REY.
[2019-04-18] VITALS (10 sets, daily range): BP systolic 88–115; BP diastolic 62–76
[2019-04-18 06:03] LABS: BASOPHILS % (AUTO) 0.3 % (0-1); EOSINOPHILS # (AUTO) 0.1 X10'3 (0-0.9); EOSINOPHILS % (AUTO) 1.4 % (0-6); HEMATOCRIT 28.5 % (42.0-52.0); HEMOGLOBIN 9.9 g/dl (14.0-17.9); LYMPHOCYTES # (AUTO) 0.3 X10'3 (1.1-4.8); LYMPHOCYTES % (AUTO) 4.7 % (21-51); MEAN CORPUSCULAR HEMOGLOBIN 33.7 PG (27.0-31.0); MEAN CORPUSCULAR HGB CONC 34.7 g/dL (33.0-36.5); MEAN CORPUSCULAR VOLUME 97.3 FL (78-98); MEAN PLATELET VOLUME 11.5 FL (7.4-10.4); MONOCYTES # (AUTO) 0.8 X10'3 (0-0.9); MONOCYTES % (AUTO) 12.3 % (2-12); NEUTROPHILS # (AUTO) 5.5 X10'3 (1.8-7.7); NEUTROPHILS % (AUTO) 81.3 % (42-75); PLATELET COUNT 136 X10'3 (140-440); RED BLOOD COUNT 2.93 X10'6 (4.70-6.10); RED CELL DISTRIBUTION WIDTH 14.7 % (11.5-14.5); WHITE BLOOD COUNT 6.7 X10'3 (4.5-11.0)
[2019-04-18 06:08] LABS: ALBUMIN 2.8 G/DL (3.4-5.0); ANION GAP 10 (8-16); BLOOD UREA NITROGEN 134 MG/DL (7-18); BUN/CREATININE RATIO 43.6 (5.4-32.0); CALCIUM 9.3 MG/DL (8.5-10.1); CHLORIDE 94 MMOL/L (99-107); CREATININE 3.07 MG/DL (0.60-1.10); GLUCOSE 92 MG/DL (70-104); MAGNESIUM 2.4 MG/DL (1.5-2.4); POTASSIUM 3.6 MMOL/L (3.5-5.1); SODIUM 132 MMOL/L (135-145); TOTAL CARBON DIOXIDE 27.6 MMOL/L (24-32); eGFR 20 ML/MIN
[2019-04-18] MEDS: DOBUTamine-DoBUTrex 500mg/D5W 250 ML IV SCH (06:18)
--- NOTE | 2019-04-18 06:30 | NUR ---
Patient in room PCU 3024. I have received report from Laura REY and had the opportunity to ask questions and assume patient care. Patient asleep in bed. In no acute distress. Will continue to monitor.
[2019-04-18 06:39] LABS: ACANTHOCYTES 1+; HYPOCHROMASIA 1+; PLATELET ESTIMATE DECREASED; SCHISTOCYTES FEW
[2019-04-18] MEDS: K and/or MAG REPLACEMENT MC SCH (08:00)
[2019-04-18] MEDS: sertraline 25mg tablet PO SCH (08:54)
[2019-04-18] MEDS: tamsulosin 0.4mg capsule PO SCH (08:54)
[2019-04-18] MEDS: docusate sod 100mg capsule PO SCH ×2 (08:54→19:23)
[2019-04-18] MEDS: lactobacillus rhamnosus 10,000 MMU CELLS/CAPSULE PO SCH (08:54)
[2019-04-18] MEDS: levoTHYROXINE 25mcg tablet PO SCH (08:54)
--- NOTE | 2019-04-18 11:56 | NUR ---
Paged Dr. Nelson: PAGER ID: [phone] MESSAGE: Tete Maricel [phone] RE: Joe Jansen [id number]. FYI - patient rectal temp 95.6. BP 96/69. Getting Bear gger unit for patient and will reassess temp Q15 minutes and advise you of changes.
[2019-04-18] MEDS: normal saline 1000ml 1,000 ML IV SCH (12:55)
--- NOTE | 2019-04-18 16:00 | NUR ---
Patient was hypothermic and has bear hugger in place to normalize temperature. Patient s/p paracentesis and in bed. Patient offered bed bath and declined at this time.
[2019-04-18 16:26] LABS: ALBUMIN,BODY FLUID 1.6 G/DL; LDH,BODY FLUID 91 U/L; TOTAL PROTEIN,BODY FLUID 2.9 G/DL; TRIGLYCERIDES,BODY FLUID 17 MG/DL
[2019-04-18 16:37] LABS: CHOLESTEROL,BODY FLUID < 50 MG/DL
[2019-04-18 16:45] LABS: BF MESOTHELIAL CELLS FEW; BF RBC COUNT 7225 /CU MM; BF WBC COUNT 108 /CU MM (0-1000); BFAPPEAR HAZY; BFCOLOR YELLOW; BFVOLUME 50 ML; EOSINOPHILS,BODY FLUID 1 %; LYMPHOCYTES,BODY FLUID 18 %; MONOCYTES,BODY FLUID 11 %; NEUTROPHILS,BODY FLUID 70 %
[2019-04-19 03:00] VITALS: BP 90/54
[2019-04-19] MEDS: normal saline 1000ml 1,000 ML IV SCH ×2 (03:21→23:50)
--- NOTE | 2019-04-19 03:22 | NUR ---
Started a new bag of NS for CANDIDO Cortez. Old IV connection port disconnected from patient.
[2019-04-19 05:44] LABS: BASOPHILS # (AUTO) 0.1 X10'3 (0-0.2); EOSINOPHILS # (AUTO) 0.1 X10'3 (0-0.9); EOSINOPHILS % (AUTO) 1.9 % (0-6); LYMPHOCYTES # (AUTO) 0.3 X10'3 (1.1-4.8); MEAN CORPUSCULAR HEMOGLOBIN 33.8 PG (27.0-31.0); MEAN CORPUSCULAR HGB CONC 34.4 g/dL (33.0-36.5); RED CELL DISTRIBUTION WIDTH 14.5 % (11.5-14.5)
[2019-04-19 05:47] LABS: BASOPHILS % (AUTO) 0.8 % (0-1); HEMATOCRIT 29.4 % (42.0-52.0); HEMOGLOBIN 10.1 g/dl (14.0-17.9); LYMPHOCYTES % (AUTO) 4.9 % (21-51); MEAN CORPUSCULAR VOLUME 98.1 FL (78-98); MEAN PLATELET VOLUME 11.9 FL (7.4-10.4); MONOCYTES # (AUTO) 0.8 X10'3 (0-0.9); MONOCYTES % (AUTO) 10.8 % (2-12); NEUTROPHILS # (AUTO) 5.8 X10'3 (1.8-7.7); NEUTROPHILS % (AUTO) 81.6 % (42-75); PLATELET COUNT 147 X10'3 (140-440); WHITE BLOOD COUNT 7.1 X10'3 (4.5-11.0)
[2019-04-19 06:00] VITALS: BP 100/57
[2019-04-19 06:23] LABS: ALBUMIN 2.8 G/DL (3.4-5.0); ANION GAP 13 (8-16); BLOOD UREA NITROGEN 129 MG/DL (7-18); BUN/CREATININE RATIO 43.4 (5.4-32.0); CALCIUM 9.2 MG/DL (8.5-10.1); CHLORIDE 95 MMOL/L (99-107); CREATININE 2.97 MG/DL (0.60-1.10); GLUCOSE 90 MG/DL (70-104); MAGNESIUM 2.3 MG/DL (1.5-2.4); POTASSIUM 3.6 MMOL/L (3.5-5.1); SODIUM 133 MMOL/L (135-145); TOTAL CARBON DIOXIDE 25.3 MMOL/L (24-32); eGFR 21 ML/MIN
--- NOTE | 2019-04-19 06:42 | NUR ---
Patient in room PCU 3024. I have received report from Laura REY and had the opportunity to ask questions and assume patient care. Patient asleep in bed with CPAP on. In no acute distress. Will continue to monitor.
--- NOTE | 2019-04-19 06:49 | NUR ---
Patient in room PCU 3024. I have received report from Laura REY and had the opportunity to ask questions and assume patient care. Patient is sleeping with CPAP on, all needs met at this time. will continue to monitor.
[2019-04-19 06:51] LABS: PLATELET ESTIMATE NORMAL
[2019-04-19 06:52] LABS: ANISOCYTOSIS 1+; LARGE PLATELETS FEW; SCHISTOCYTES 1+
[2019-04-19 06:54] LABS: ACANTHOCYTES 2+
[2019-04-19] MEDS: lactobacillus rhamnosus 10,000 MMU CELLS/CAPSULE PO SCH (07:32)
[2019-04-19] MEDS: docusate sod 100mg capsule PO SCH ×2 (07:32→20:02)
[2019-04-19] MEDS: sertraline 25mg tablet PO SCH (07:32)
[2019-04-19] MEDS: levoTHYROXINE 25mcg tablet PO SCH (07:32)
[2019-04-19] MEDS: tamsulosin 0.4mg capsule PO SCH (07:32)
[2019-04-19] MEDS: K and/or MAG REPLACEMENT MC SCH (07:34)
[2019-04-19 11:00] VITALS: BP 92/67
--- NOTE | 2019-04-19 11:21 | NUR ---
Initial: Pt admit w/ cardiorenal syndrome EF 40-45% per MD note. Ascites present s/p paracentesis yesterday -2300ml fluid. PO increased to 50% avg 1500ml fluid-restricted/renal/heart healthy meals. AOx3 today. LBM 04/17. Maintains negative fluid balance past 24 hours -425ml. Will continue to monitor for additional protein needs if PO remains low. Rec: 1. continue 1500ml fluid restricted/renal/heart healthy diet per MD 2. monitor for additional protein needs 3. encourage PO 4. weekly wts Addendum: 04/19/19 at [address] Amended: Links added.
--- NOTE | 2019-04-19 11:37 | NUR ---
PAGER ID: [phone] MESSAGE: [id number] Joe Jansen: FYI increased Left forearm edema non pitting. thanks Daryl [phone]
--- NOTE | 2019-04-19 11:46 | NUR ---
New order from Dr. Best for LUE Venous Doppler to r/o DVT
[2019-04-19 15:00] VITALS: BP 93/65
--- NOTE | 2019-04-19 15:20 | NUR ---
Orientee documentation: I have reviewed and agree with all interventions, assessments performed and documented by Daryl REY. [place]ee Medication Administration: For this medication-pass time frame, all medication were reviewed, dispensed, administered and documented per hospital policy by Daryl REY.
--- NOTE | 2019-04-19 15:20 | NUR ---
Problems reprioritized. Patient report given, questions answered & plan of care reviewed with Freddie REY. Patient stable at transfer of care.
--- NOTE | 2019-04-19 15:34 | NUR ---
Patient in room PCU 3023e. I have received report from CANDIDO Epstein and had the opportunity to ask questions and assume patient care. Patient asleep for bedside report. NS infusing at 50 mL/hr per provider order. Will continue to monitor closely.
--- NOTE | 2019-04-19 18:00 | NUR ---
Patient in room PCU 3024. I have received report from Freddie REY and Daryl REY and had the opportunity to ask questions and assume patient care.
--- NOTE | 2019-04-19 18:12 | NUR ---
Problems reprioritized. Patient report given, questions answered & plan of care reviewed with Zhao REY and Olimpia REY.
--- NOTE | 2019-04-19 18:12 | NUR ---
Orientee documentation: I have reviewed and agree with all interventions, assessments performed and documented by CANDIDO Escobar.
--- NOTE | 2019-04-19 18:30 | NUR ---
Patient in room PCU 3024. I have received report from Freddie REY and had the opportunity to ask questions and assume patient care with Talia REY.
[2019-04-19 19:00] VITALS: BP 89/57
[2019-04-19 22:00] VITALS: BP 87/65
[2019-04-20 03:00] VITALS: BP 89/70
--- NOTE | 2019-04-20 05:53 | NUR ---
Patient slept well tonight with CPAP on all night. Was able to walk to the bathroom in the night with front wheel walker with ease.
--- NOTE | 2019-04-20 06:27 | NUR ---
Problems reprioritized. Patient report given, questions answered & plan of care reviewed with Jessica and Juli RNs.
--- NOTE | 2019-04-20 06:31 | NUR ---
Problems reprioritized. Patient report given, questions answered & plan of care reviewed with Jessica REY.
--- NOTE | 2019-04-20 06:46 | NUR ---
Patient in room PCU 3024. I have received report from Ena REY and Talia REY and had the opportunity to ask questions and assume patient care. Patient is in bed sleeping, all needs met at this time. will continue to monitor.
[2019-04-20 07:00] VITALS: BP 85/62
[2019-04-20] MEDS: tamsulosin 0.4mg capsule PO SCH (07:38)
[2019-04-20] MEDS: K and/or MAG REPLACEMENT MC SCH (07:38)
[2019-04-20] MEDS: levoTHYROXINE 25mcg tablet PO SCH (07:38)
[2019-04-20] MEDS: docusate sod 100mg capsule PO SCH (07:38)
[2019-04-20] MEDS: sertraline 25mg tablet PO SCH (07:38)
[2019-04-20] MEDS: lactobacillus rhamnosus 10,000 MMU CELLS/CAPSULE PO SCH (07:38)
[2019-04-20 10:05] LABS: ALANINE AMINOTRANSFERASE 15 U/L (12-78); ALBUMIN/GLOBULIN RATIO 1.1 (1.1-1.5); ALKALINE PHOSPHATASE 96 IU/L (46-116); ANION GAP 9 (8-16); ASPARTATE AMINO TRANSFERASE 14 U/L (10-37); BILIRUBIN,TOTAL 1.5 MG/DL (0.1-1.0); BLOOD UREA NITROGEN 122 MG/DL (7-18); BUN/CREATININE RATIO 42.4 (5.4-32.0); CALCIUM 9.3 MG/DL (8.5-10.1); CHLORIDE 98 MMOL/L (99-107); CREATININE 2.88 MG/DL (0.60-1.10); GLUCOSE 105 MG/DL (70-104); POTASSIUM 3.5 MMOL/L (3.5-5.1); SODIUM 135 MMOL/L (135-145); TOTAL CARBON DIOXIDE 28.5 MMOL/L (24-32); TOTAL PROTEIN 5.8 G/DL (6.4-8.2); eGFR 22 ML/MIN
[2019-04-20 11:00] VITALS: BP 97/70
[2019-04-20] MEDS ORDERED: SERT25TA5 PO (11:46)
[2019-04-20] MEDS ORDERED: FURO-150 PO (11:46)
[2019-04-20] MEDS ORDERED: LACT10SO32 PO (11:46)
[2019-04-20 15:00] VITALS: BP 109/64
--- NOTE | 2019-04-20 15:38 | NUR ---
PAGER ID: [phone] MESSAGE: [id number] Tammie Dick Pt blood pressure is 164/66, please advise Jessica #[phone]
--- NOTE | 2019-04-20 16:28 | NUR ---
97.2 67 18 99% on RA, 108/64, Patient is stable for discharge per MD orders, discharge instructions discussed with patient and , questions answered, new medication prescriptions called in to [facility] on [address] AWILDA gonsalves dc'ed, clean dry dressing in place, coban implemented d/t pt high risk for bleeding, patient discharged @ 1528 to home with hh services with and hospital staff via wheelchair to private vehicle, all belongings with patient.
== END 2019-04-20 16:00 | disposition home health service (06) | DRG 280 ==
LOC: ER 10:20 → PCU 3S 16:01 → CMPBEDREQ 04-18 08:04
PROVIDERS: ADMIT Hospitalist; ATTEND Hospitalist
PROC: 5A09357 Assistance with Respiratory Ventilation, Less than 24 Consecutive Hours, Continuous Positive Airway Pressure (ICD-10-PCS; 2019-04-15)
PROC: 5A09357 Assistance with Respiratory Ventilation, Less than 24 Consecutive Hours, Continuous Positive Airway Pressure (ICD-10-PCS; 2019-04-17)
PROC: 0W9G3ZZ Drainage of Peritoneal Cavity, Percutaneous Approach (ICD-10-PCS; principal; 2019-04-18)
PROC: 5A09357 Assistance with Respiratory Ventilation, Less than 24 Consecutive Hours, Continuous Positive Airway Pressure (ICD-10-PCS; 2019-04-18)
PROC: 5A09357 Assistance with Respiratory Ventilation, Less than 24 Consecutive Hours, Continuous Positive Airway Pressure (ICD-10-PCS; 2019-04-19)
PROC: 5A09357 Assistance with Respiratory Ventilation, Less than 24 Consecutive Hours, Continuous Positive Airway Pressure (ICD-10-PCS; 2019-04-20)
DX: I21.A1 Myocardial infarction type 2 (principal); I50.23 Acute on chronic systolic (congestive) heart failure; I13.0 Hypertensive heart and chronic kidney disease with heart failure and stage 1 through stage 4 chronic kidney disease, or unspecified chronic kidney disease; N17.9 Acute kidney failure, unspecified; R18.8 Other ascites; E87.1 Hypo-osmolality and hyponatremia; I82.712 Chronic embolism and thrombosis of superficial veins of left upper extremity; I07.1 Rheumatic tricuspid insufficiency; E87.6 Hypokalemia; N18.9 Chronic kidney disease, unspecified; I27.20 Pulmonary hypertension, unspecified; K74.60 Unspecified cirrhosis of liver; E03.9 Hypothyroidism, unspecified; E86.1 Hypovolemia; I95.9 Hypotension, unspecified; K76.9 Liver disease, unspecified; I25.10 Atherosclerotic heart disease of native coronary artery without angina pectoris; I48.2 Chronic atrial fibrillation; K21.9 Gastro-esophageal reflux disease without esophagitis; N40.0 Benign prostatic hyperplasia without lower urinary tract symptoms; Z66 Do not resuscitate; Z79.01 Long term (current) use of anticoagulants; Z90.49 Acquired absence of other specified parts of digestive tract; Z90.81 Acquired absence of spleen; Z95.3 Presence of xenogenic heart valve; Z95.810 Presence of automatic (implantable) cardiac defibrillator; Z88.8 Allergy status to other drugs, medicaments and biological substances; Z79.899 Other long term (current) drug therapy; R68.0 Hypothermia, not associated with low environmental temperature
CPT/HCPCS: 36415; 49083; 74176; 80048; 80053; 81001; 82042; 82140; 82465; 82570; 83615; 83690; 83735; 83880; 84157; 84300; 84443; 84478; 84484; 85025; 85610; 85730; 87070; 87075; 87081; 87207; 89051; 93306; 93971; 96361; 96374; 97110; 97116; 97162; 97530; 99285; G0378; J1250; J2270; J2405; J3430; J3480; J7030